=== PATIENT | female | born 1995 ===

== ENCOUNTER 2018-02-09 19:56 | Emergency (ER) | payer SELFPAY ==
[2018-02-09 19:56] VITALS: BMI 25.3
[2018-02-09 20:03] VITALS: BP 107/71; PULSE 118; RESP 18; TEMP 99.7; O2SAT 98
--- NOTE | 2018-02-09 20:19 | ED PDOC ---
HPI: CCC, URI, Sore Throat Time Seen by Provider: 02/09/18 19:56 Chief Complaint (Nursing): ENT Problem Chief Complaint (Provider): ENT Problem History Per: Patient History/Exam Limitations: no limitations Onset/Duration Of Symptoms: Days (x4) Current Symptoms Are (Timing): Still Present Additional Complaint(s): 22 year old female with medical history of asthma, presents to the emergency department with a complaint of sore throat associated with sweats ongoing for 4 days. Denied any fever, chills or sick contacts. Patient also reported prolonged history of strep infections and tonsillitis. PMD: none provided Past Medical History Reviewed: Historical Data, Nursing Documentation, Vital Signs Vital Signs: Last Vital Signs Temp 99.7 F H 02/09/18 20:01 Pulse 118 H 02/09/18 20:01 Resp 18 02/09/18 20:01 BP 107/71 02/09/18 20:01 Pulse Ox 98 02/09/18 20:24 - Medical History PMH: No Chronic Diseases - Surgical History Surgical History: No Surg Hx - Family History Family History: States: Unknown Family Hx - Social History Current smoker - smoking cessation education provided: No Ex-Smoker (has not smoked in the last 12 months): No Alcohol: None Drugs: Denies - Home Medications Home Medications: Ambulatory Orders Medication Instructions Recorded Pnv No.95/Ferrous Fum/Folic AC 1 each PO DAILY 08/25/16 [ Vitamin Tablet] Ibuprofen [Motrin] 600 mg PO Q8 PRN #21 tab 02/09/18 - Allergies Allergies/Adverse Reactions: Allergies Allergy/AdvReac Type Severity Reaction Status Date / Time shellfish derived Allergy RASH Verified 08/25/16 08:11 Review of Systems ROS Statement: Except As Marked, All Systems Reviewed And Found Negative Constitutional: Positive for: Sweats. Negative for: Fever, Chills ENT: Positive for: Ear Pain (right-ear), Throat Pain Physical Exam - Reviewed Nursing Documentation Reviewed: Yes Vital Signs Reviewed: Yes - Physical Exam Appears: Positive for: Non-toxic, No Acute Distress ENT: Positive for: Pharyngeal Erythema (minimum), Tonsillar Exudate (small amount), Tonsillar Swelling (bilaterally) Neck: Positive for: Normal, Supple Cardiovascular/Chest: Positive for: Regular Rate, Rhythm, Chest Non Tender Respiratory: Positive for: Normal Breath Sounds. Negative for: Decreased Breath Sounds, Respiratory Distress Neurologic/Psych: Positive for: Alert (x3), Oriented - ECG O2 Sat by Pulse Oximetry: 98 (RA) Pulse Ox Interpretation: Normal - Progress ED Course And Treament: DECADRON 10 MG IM X 1 DOSE MONO SPOT NEG RAPID STREP NEG Medical Decision Making Medical Decision Making: Initial Impression: Tonsillitis Initial Plan: * Decadron inj 10mg IM * [place] * Rapid strep Scribe Attestation: Documented by Светлана Andre, acting as a scribe for Celestino Yeh PA-C. Provider Scribe Attestation: All medical record entries made by the Scribe were at my direction and personally dictated by me. I have reviewed the chart and agree that the record accurately reflects my personal performance of the history, physical exam, medical decision making, and the department course for this patient. I have also personally directed, reviewed, and agree with the discharge instructions and disposition. Disposition - Clinical Impression Clinical Impression: Pharyngitis - Patient ED Disposition Is Patient to be Admitted: No - Disposition Disposition: Routine/Home Disposition Time: 21:33 Condition: FAIR Prescriptions: Ibuprofen [Motrin] 600 mg PO Q8 PRN #21 tab PRN Reason: Pain, Moderate (4-7) Instructions: Viral Pharyngitis Forms: [facility] (Belarusian), [facility] ED School/Work Excuse
== END 2018-02-09 22:11 | disposition home or self-care (01) ==
LOC: H.ER 19:56
DX: J02.9 Acute pharyngitis, unspecified (principal); J45.909 Unspecified asthma, uncomplicated
CPT/HCPCS: 86308; 87070; 87430; 96372; 99282; J1100

== ENCOUNTER 2019-01-09 17:40 | Emergency (ER) | payer MEDICAID ==
[2019-01-09 17:41] VITALS: BMI 25.3
[2019-01-09 18:15] VITALS: O2SAT 98
[2019-01-09] MEDS ORDERED: Sodium Chloride 0.9% 1,000 ML IV STA (18:58)
[2019-01-09 20:02] LABS: BASO # 0.1 K/uL (0.0-0.2); BASO % 0.6 % (0.0-2.0); EOS # 0.2 K/uL (0.0-0.7); EOS % 1.8 % (0.0-4.0); HEMOGLOBIN 11.5 g/dL (12.0-16.0); LYMPH % 14.9 % (20.0-40.0); MEAN CORPUSCULAR HEMOGLOBIN 31.8 pg (27.0-31.0); MEAN CORPUSCULAR HGB CONC 33.8 g/dL (33.0-37.0); MEAN PLATELET VOLUME 7.6 fl (7.2-11.7); MONO # 0.8 K/uL (0.0-0.8); MONO % 5.7 % (0.0-10.0); NEUT # 10.4 K/uL (1.8-7.0); RBC 3.63 Mil/uL (3.80-5.20); RED CELL DISTRIBUTION WIDTH 13.3 % (11.5-14.5); WHITE BLOOD COUNT 13.5 K/uL (4.8-10.8)
--- NOTE | 2019-01-09 20:19 | ED PDOC ---
- Laboratory Results Result Diagrams: 01/09/19 19:45 01/09/19 22:00 - ECG O2 Sat by Pulse Oximetry: 98 Medical Decision Making Medical Decision Making: Time: 1999 --Patient is endorsed to provider by Dr. Mann, pending lab and US results. Scribe Attestation: Documented by Светлана Andre, acting as a scribe for Danyel Babin MD. Provider Scribe Attestation: All medical record entries made by the Scribe were at my direction and personally dictated by me. I have reviewed the chart and agree that the record accurately reflects my personal performance of the history, physical exam, medical decision making, and the department course for this patient. I have also personally directed, reviewed, and agree with the discharge instructions and disposition. Time: 2317 US RESULTS COMMENTS: There is a single intrauterine gestation, Breech presentation. The biparietal diameter measures 3.4 cm. This corresponds to a gestational age of 16 weeks 3 days. The abdominal circumference and femur length measure 9.9 cm and 2.3 cm, respectively, and are relatively proportionate to the BPD. The head circumference measures 12.6 cm. The HC-AC ratio is normal. The composite age is 16 weeks 3 days, +/- 1 week 1 day. heart motion was observed. The heart rate is 146 beats per minute. motion is detected. The placenta is fundal and free of the cervical os. The cervical length is 5 cm and cervix is closed. There is no evidence of free fluid within the pelvic cul-de-sac. Both ovaries are not visualized. No uterine masses are seen. IMPRESSION: Single, live, intrauterine gestation with a composite gestational age of 16 weeks 3 days, +/- 1 week 1 day. Electronically signed on Jan 09, 2019 11:18:21 PM EST by: Carlos Connolly M.D., ALEX Certified By [facility] & [facility] Fellowship Trained MRI and CT Specialist Time: 2352 -- Patient is stable for discharge home with a diagnosis of abdominal pain affecting and a threatened miscarriage. Patient advised to follow up with the [facility] for further management. Scribe Attestation: Documented by Sara Mackay, acting as a scribe for Danyel Babin MD. Provider Scribe Attestation: All medical record entries made by the Scribe were at my direction and personally dictated by me. I have reviewed the chart and agree that the record accurately reflects my personal performance of the history, physical exam, medical decision making, and the department course for this patient. I have also personally directed, reviewed, and agree with the discharge instructions and disposition. Disposition Counseled Patient/Family Regarding: Studies Performed, Diagnosis, Need For Followup - Clinical Impression Clinical Impression: Abdominal pain affecting , Threatened miscarriage - POA Present On Arrival: None - Disposition Referrals: [facility] [Outside] Disposition: Routine/Home Disposition Time: 23:53 Condition: IMPROVED Instructions: Threatened Miscarriage, Stomach Pain in Early Forms: [facility] [facility] (Italian)
[2019-01-09 20:26] LABS: SQUAMOUS EPITHIAL 9 /hpf (0-5); URINE BACTERIA RARE (<OCC); URINE BILIRUBIN NEGATIVE (NEGATIVE); URINE BLOOD NEGATIVE (NEGATIVE); URINE CLARITY SLIGHTY-CLOUDY (Clear); URINE COLOR YELLOW (YELLOW); URINE GLUCOSE (UA) NEG (NEGATIVE); URINE LEUKOCYTE ESTERASE NEG Leu/uL (Negative); URINE PROTEIN NEGATIVE (NEGATIVE); URINE UROBILINOGEN 0.2-1.0 mg/dL (0.2-1.0)
--- NOTE | 2019-01-09 21:20 | ED PDOC ---
HPI: Abdomen Time Seen by Provider: 01/09/19 18:51 Chief Complaint (Nursing): Female Genitourinary Chief Complaint (Provider): Female Genitourinary History Per: Patient History/Exam Limitations: no limitations Onset/Duration Of Symptoms: Days (x1) Current Symptoms Are (Timing): Still Present Additional Complaint(s): 23 year old female, currently 16 weeks , presents to ED with suprapubic tenderness associated with mild back pain. She states symptoms feel different than previous UTIs. Patient was seen recently by REDUCING SYSTEM OPERATOR for vaginal bleed then diagnosed with threatened . She denies bleeding today but concern about proper progression of . Otherwise, no reports of vaginal discharge, bloody urine, dysuria, fever, chills, or vomiting. PCP: Peter Oshea Past Medical History Reviewed: Historical Data, Nursing Documentation, Vital Signs Vital Signs: Last Vital Signs Temp 98.2 F 01/09/19 18:12 Pulse 80 01/09/19 18:12 Resp 16 01/09/19 18:12 BP 101/56 L 01/09/19 18:12 Pulse Ox 98 01/09/19 20:19 - Medical History PMH: Asthma Denies: Chronic Kidney Disease - Family History Family History: States: Unknown Family Hx - Home Medications Home Medications: Ambulatory Orders Medication Instructions Recorded Pnv No.95/Ferrous Fum/Folic AC 1 each PO DAILY 08/25/16 [ Vitamin Tablet] Ibuprofen [Motrin] 600 mg PO Q8 PRN #21 tab 02/09/18 - Allergies Allergies/Adverse Reactions: Allergies Allergy/AdvReac Type Severity Reaction Status Date / Time shellfish derived Allergy RASH Verified 01/09/19 18:12 Review of Systems ROS Statement: Except As Marked, All Systems Reviewed And Found Negative Constitutional: Negative for: Fever, Chills Gastrointestinal: Positive for: Abdominal Pain (suprapubic). Negative for: Vomiting Genitourinary Female: Negative for: Dysuria, Hematuria, Vaginal Discharge, Vaginal Bleeding Musculoskeletal: Positive for: Back Pain (mildly) Physical Exam - Reviewed Nursing Documentation Reviewed: Yes Vital Signs Reviewed: Yes - Physical Exam Appears: Positive for: Well, Non-toxic, No Acute Distress Head Exam: Positive for: ATRAUMATIC, NORMAL INSPECTION, NORMOCEPHALIC Skin: Positive for: Normal Color Eye Exam: Positive for: Normal appearance ENT: Positive for: Normal ENT Inspection Neck: Positive for: Normal Cardiovascular/Chest: Positive for: Regular Rate, Rhythm, Chest Non Tender Respiratory: Positive for: Normal Breath Sounds. Negative for: Wheezing, Respiratory Distress Gastrointestinal/Abdominal: Positive for: Soft, Tenderness (suprapubic; left flank), Other (gravid umbilicus) Back: Positive for: Normal Inspection Extremity: Positive for: Normal ROM (uppe/lower) Neurologic/Psych: Positive for: Alert, Oriented. Negative for: Motor/Sensory Deficits - Laboratory Results Result Diagrams: 01/09/19 19:45 01/09/19 22:00 Lab Results: Urine Color Yellow (YELLOW) 01/09/19 20:08 Urine Clarity Slighty-cloudy (Clear) 01/09/19 20:08 Urine pH 7.0 (5.0-8.0) 01/09/19 20:08 Ur Specific [place] 1.010 (1.003-1.030) 01/09/19 20:08 Urine Protein Negative mg/dL (NEGATIVE) 01/09/19 20:08 Urine Glucose (UA) Neg mg/dL (NEGATIVE) 01/09/19 20:08 Urine Ketones Negative mg/dL (NEGATIVE) 01/09/19 20:08 Urine Blood Negative (NEGATIVE) 01/09/19 20:08 Urine Nitrate Negative (NEGATIVE) 01/09/19 20:08 Urine Bilirubin Negative (NEGATIVE) 01/09/19 20:08 Urine Urobilinogen 0.2-1.0 mg/dL (0.2-1.0) 01/09/19 20:08 Ur Leukocyte Esterase Neg [place]/uL (Negative) 01/09/19 20:08 Urine RBC (Auto) 1 /hpf (0-3) 01/09/19 20:08 Urine Microscopic WBC 2 /hpf (0-5) 01/09/19 20:08 Ur Squamous Epith Cells 9 /hpf (0-5) H 01/09/19 20:08 Urine Bacteria Rare (<OCC) 01/09/19 20:08 Beta HCG, Quant 89289.00 mIU/mL 01/09/19 19:45 - ECG O2 Sat by Pulse Oximetry: 98 (RA) Pulse Ox Interpretation: Normal Medical Decision Making Medical Decision Making: Time: 1856 Initial Plan: work up for UTI. US ordered due to pain and previously diagnosis of threatened . * Labs with UA * IV fluids * Tylenol 650mg PO * US OB Time: 1999 --Patient endorsed to Dr. Babin, pending lab and US results. Scribe Attestation: Documented by Светлана Andre, acting as a scribe for Annemaire Mann MD. Provider Scribe Attestation: All medical record entries made by the Scribe were at my direction and personally dictated by me. I have reviewed the chart and agree that the record accurately reflects my personal performance of the history, physical exam, medical decision making, and the department course for this patient. I have also personally directed, reviewed, and agree with the discharge instructions and disposition. Disposition - Clinical Impression Clinical Impression: Abdominal pain affecting , Threatened miscarriage - Disposition [facility]] Disposition Time: 20:00 Condition: IMPROVED Instructions: Threatened Miscarriage, Stomach Pain in Early Forms: [employer] ([place]an)
[2019-01-09 22:28] LABS: BLOOD UREA NITROGEN 10 mg/dl (7-17); CALCIUM 9.4 mg/dL (8.4-10.2); GFR NON-AFRICAN AMERICAN > 60
[2019-01-09 23:55] VITALS: BP 104/52; PULSE 84; RESP 20; TEMP 97.7
--- NOTE | 2019-01-10 09:30 | US ---
Date of service: 01/09/2019 PROCEDURE: HISTORY: rule out threatened COMPARISON: TECHNIQUE: FINDINGS: Single live intrauterine gestation in breech presentation with a BPD of 3.4 cm corresponding to 16 weeks and 3 days gestational age. The remaining of the biometric measurements are concordant with the BPD. heart motion identified. The placenta is fundal and free of cervical os. There is no free fluid the pelvis. Both ovaries are not visualized. There is no uterine mass. anatomic survey was not performed. Recommend follow-up in the 2nd trimester. IMPRESSION: As above.
== END 2019-01-09 23:55 | disposition home or self-care (01) ==
LOC: H.ER 17:40 → MERGE 17:40 → H.ER 23:55
DX: O20.0 Threatened abortion (principal); Z3A.16 16 weeks gestation of pregnancy
CPT/HCPCS: 76815; 80048; 81003; 81025; 84702; 85025; 99284; J7030

== ENCOUNTER 2019-03-23 13:27 | Emergency (ER) | payer MEDICAID, OTHER ==
[2019-03-23 13:27] VITALS: BMI 21.7
[2019-03-23 13:36] VITALS: BP 101/59; PULSE 91; RESP 16; TEMP 98.2; O2SAT 96
--- NOTE | 2019-03-23 14:11 | ED PDOC ---
HPI: Dental Pain/Injury Time Seen by Provider: 03/23/19 13:39 Chief Complaint (Nursing): Dental Pain Chief Complaint (Provider): Dental Pain History Per: Patient Onset/Duration Of Symptoms: Days (x1 week) Current Symptoms Are (Timing): Still Present Additional Complaint(s): Patient is a 23 year old female who is x26 weeks with a past medical history of asthma, who presents to the emergency department complaining of having a bump to the top of her mouth that appeared last week. She states that the pain got worse and that the bump got bigger since it started 5 days ago. The pain is all around the front teeth. Patient states the dental pain has caused her to develop a headache as well. She has not taken anything for pain as she does not known what is safe. Pt has an appointment with OBGYN coming up, has had no complications and currently denies abdominal pain, urinary symptoms, or vaginal bleeding, She reports feeling the baby moving well. Denies fever, chills, difficulty swallowing, drooling, or h/o of the same kind of bump. Patient states she does not have a dentist. PMD: Jose Luke Past Medical History Reviewed: Historical Data, Nursing Documentation, Vital Signs Vital Signs: Last Vital Signs Temp 98.2 F 03/23/19 13:33 Pulse 91 H 03/23/19 13:33 Resp 16 03/23/19 13:33 BP 101/59 L 03/23/19 13:33 Pulse Ox 96 03/23/19 13:33 Primary Care Provider: Joes Luke - Medical History PMH: Asthma Denies: Chronic Kidney Disease - Surgical History Surgical History: No Surg Hx - Family History Family History: States: Unknown Family Hx - Immunization History Hx Tetanus Toxoid Vaccination: No Hx Influenza Vaccination: No Hx Pneumococcal Vaccination: No - Home Medications Home Medications: Ambulatory Orders Medication Instructions Recorded Pnv No.95/Ferrous Fum/Folic AC 1 each PO DAILY 08/25/16 [ Vitamin Tablet] Ibuprofen [Motrin] 600 mg PO Q8 PRN #21 tab 02/09/18 Albuterol HFA [Ventolin HFA 90 2 puff IH [id number] PRN 12/22/18 mcg/actuation (8 g)] Acetaminophen [8 Hour] 650 mg PO Q8 PRN #20 tablet.er 03/23/19 Amoxicillin/Clavulanate [Augmentin 1 tab PO BID 10 Days #20 tab 03/23/19 875 MG-125 MG] - Allergies Allergies/Adverse Reactions: Allergies Allergy/AdvReac Type Severity Reaction Status Date / Time shellfish derived Allergy RASH Verified 03/23/19 13:32 shrimp Allergy ANAPHYLAXIS Verified 03/23/19 13:32 Review of Systems ROS Statement: Except As Marked, All Systems Reviewed And Found Negative Constitutional: Negative for: Fever ENT: Positive for: Other (bump in mouth around front teeth and gums) Genitourinary Female: Negative for: Vaginal Bleeding Neurological: Positive for: Headache Physical Exam - Reviewed Nursing Documentation Reviewed: Yes Vital Signs Reviewed: Yes - Physical Exam Comments: GENERAL APPEARANCE: Patient is awake, alert, oriented x 3, in mild obvious discomfort. SKIN: Warm, dry; (-) cyanosis. ENMT: (+) bilateral maxillary sinus and bridge of nose. Pharynx: (+) clear (- ) tongue elevation, (-) tonsilar inflammation (-) exudate. Airway patent: (-) stridor. (-) Submandibular or submental neck swelling (-) pseudomembranes. Top upper lip tenderness; abscess formation on inside upper gums above the front 2 teeth with moderate TTP, with mild fluctuance, (+) good dental hygiene NECK: (-) tenderness, (-) crepitus. ABD: (+) soft, (+) gravid, (-) tenderness - Laboratory Results Result Diagrams: 03/23/19 14:00 03/23/19 14:00 - ECG O2 Sat by Pulse Oximetry: 96 (RA) Pulse Ox Interpretation: Normal Medical Decision Making Medical Decision Making: Time: 1351 Impression: abscess formation Plan: --Tylenol 650 mg PO --Consult Dr. Annemarie Mann Time: 1359 --Spoke with Dr. Mann, who recommends blood work and based on that will consider imaging vs. antibiotics and close follow up. Plan: --CMP --CBC with differential --Saline lock 15:00 reviewed blood work with Dr. Mann, slightly elevated WBC, non specific as pt is , will avoid radiation at this time, start on antibiotics and strict follow up Pt reports she has an appointment with her doctor tomorrow, in the same building there is a dentist so she will follow up discussed strict return precautions with pt Discussed results, diagnosis, treatment, return precautions and f/u with pt who is understanding, in agreement and stable for dc Scribe Attestation: Documented by Jef Barbosa, acting as a scribe for RADHA Will. Provider Scribe Attestation: All medical record entries made by the Scribe were at my direction and personally dictated by me. I have reviewed the chart and agree that the record accurately reflects my personal performance of the history, physical exam, medical decision making, and the department course for this patient. I have also personally directed, reviewed, and agree with the discharge instructions and disposition. Disposition - Clinical Impression Clinical Impression: Dental abscess - Patient ED Disposition Is Patient to be Admitted: No Counseled Patient/Family Regarding: Studies Performed, Diagnosis, Need For Followup, Rx Given - Disposition Referrals: a, dentist [facility] [Other] Disposition: Routine/Home Disposition Time: 15:11 Condition: STABLE Additional Instructions: Thank you for letting us take care of you today. FOLLOW UP WITH A DENTIST IN 1-2 DAYS. take antibiotics as prescribed until finished. The emergency medical care you received today was directed at your acute symptoms. If you were prescribed any medication, please fill it and take as directed. It may take several days f or your symptoms to resolve. Return to the Emergency Department if your symptoms worsen, do not improve, or if you have any other problems. Please contact your doctor in 2 days for re-evaluation and follow up / or call one of the physicians/clinics you have been referred to that are listed on the P atient Visit Information form that is included in your discharge packet. Bring any paperwork you were given at discharge with you along with any medications you are taking to your follow up visit. Our treatment cannot replace ongoing medical care by a primary care provider (PCP) outside of the emergency department. Prescriptions: Acetaminophen [8 Hour] 650 mg PO Q8 PRN #20 tablet.er PRN Reason: Pain, Moderate (4-7) Amoxicillin/Clavulanate [Augmentin 875 MG-125 MG] 1 tab PO BID 10 Days #20 tab Instructions: Tooth Abscess (DC), Dental Pain (DC) Forms: [facility] (Bengali) Print Language: IVORIAN - POA Present On Arrival: None
[2019-03-23 14:32] LABS: BASO % 0.3 % (0.0-2.0); EOS # 0.1 K/uL (0.0-0.7); EOS % 0.7 % (0.0-4.0); HEMOGLOBIN 11.7 g/dL (12.0-16.0); LYMPH # 1.3 K/uL (1.0-4.3); LYMPH % 9.2 % (20.0-40.0); MEAN CORPUSCULAR HEMOGLOBIN 32.4 pg (27.0-31.0); MEAN CORPUSCULAR HGB CONC 34.1 g/dL (33.0-37.0); MEAN PLATELET VOLUME 7.8 fl (7.2-11.7); MONO # 0.5 K/uL (0.0-0.8); MONO % 3.7 % (0.0-10.0); NEUT # 11.8 K/uL (1.8-7.0); NEUT % 86.1 % (50.0-75.0); PLATELET COUNT 270 K/uL (130-400); RBC 3.61 Mil/uL (3.80-5.20); RED CELL DISTRIBUTION WIDTH 13.4 % (11.5-14.5); WHITE BLOOD COUNT 13.7 K/uL (4.8-10.8)
[2019-03-23 14:46] LABS: ALB/GLOB RATIO 1.1 (1.0-2.1); ALBUMIN 3.5 g/dL (3.5-5.0); ALT/SGPT 24 U/L (9-52); AST/SGOT 18 U/L (14-36); BLOOD UREA NITROGEN 8 mg/dl (7-17); CALCIUM 8.6 mg/dL (8.4-10.2); GFR NON-AFRICAN AMERICAN > 60
[2019-03-23 15:15] LABS: BASOPHIL 1 % (0-2); HYPOCHROMIC SLIGHT; LYMPHOCYTE 15 % (20-50); MONOCYTE 3 % (0-10); NEUTROPHIL 81 % (42-75); PLATELET ESTIMATE NORMAL (NORMAL); TOTAL CELLS COUNTED 100
[2019-03-23 15:16] LABS: TEARDROP CELLS SLIGHT
== END 2019-03-23 15:36 | disposition home or self-care (01) ==
LOC: H.ER 13:27
DX: K04.7 Periapical abscess without sinus (principal); J45.909 Unspecified asthma, uncomplicated